=== PATIENT | female | born 1935 | race Caucasian/White ===

== ENCOUNTER 2017-11-18 11:19 | Observation (INO) ==
--- NOTE | 2017-11-18 11:32 | Emergency Department Note ---
Disposition Clinical Impression: Vertigo, Dizziness Fall with no significant injury Qualifiers: Encounter type: initial encounter Qualified Code(s): W19.XXXA - Unspecified fall, initial encounter Disposition: Admitted As Inpatient Condition: Good Referrals: Manny Ortiz DO [Family Provider] - NONE,PCP [Primary Care Provider] - Forms: ED Satisfaction Letter Time of Disposition: 18:40 Fall HPI - General Chief Complaint: ED Head Injury Stated Complaint: fell/head injury,neuro symptoms Time Seen by Provider: 11/18/17 11:22 Source: patient Mode of arrival: private vehicle Limitations: no limitations Nursing Notes Reviewed: Yes Vital Signs Reviewed: Yes - History of Present Illness HPI Narrative: 82-year-old female with history of hypertension, arrives to the emergency department complaining of fall injury. The patient states she got out of bed and was standing in front of the toilet and had a fall where she struck her head on the bench that she has in her bathroom. The patient states she had a dizzy spell prior to this episode. No LOC. No chest pain, no dyspnea. The patient denies any other complaints at this time. She called her daughter after it happened roughly an hour later and her daughter came to her house to evaluate the patient it was noted that time that the daughter noted a small amount of facial droop that she was a positive was actually there but wanted the patient to be checked out irregardless. The patient is neurologically intact at this time and following all commands and alert. The patient lives by herself. She denies any other complaints at this time. She does have a small hematoma overlying her left temporal region. Physical exam is otherwise unremarkable. She denies any paresthesias, confusion, chest pain, dyspnea, abdominal pain, fever, chills. - Related Data Home Medications Medication Instructions Recorded Confirmed Acetaminophen w/Cod 300-30 mg 1 - 2 tab PO Q6-8H PRN 11/18/17 11/18/17 [Tylenol w/Codeine #3] Aspirin [Lo-Dose Aspirin EC] 81 mg PO DAILY 11/18/17 11/18/17 Betamethasone Meghna 0.1% Crm 1 appl TP AD 11/18/17 11/18/17 [Valisone 0.1%] Bimatoprost [Lumigan] 1 drop BOTH EYES HS 11/18/17 11/18/17 Brinzolamide 1% [Azopt] 1 drop BOTH EYES BID 11/18/17 11/18/17 Hydrochlorothiazide [Microzide] 12.5 mg PO Q48H 11/18/17 11/18/17 Levothyroxine Sodium [Levoxyl] 50 mcg PO Q48H 11/18/17 11/18/17 Losartan [Cozaar] 25 mg PO DAILY 11/18/17 11/18/17 Metoprolol Succinate [Toprol Xl] 12.5 mg PO DAILY 11/18/17 11/18/17 Naproxen Sodium [Aleve] 220 mg PO Q12H PRN 11/18/17 11/18/17 Rosuvastatin [Crestor] 20 mg PO HS 11/18/17 11/18/17 Sertraline [Zoloft] 100 mg PO DAILY 11/18/17 11/18/17 Vit A/C/E AC/Znox/Cupric Oxide 1 tab PO DAILY 11/18/17 11/18/17 [Eye Vitamin-Minerals Tablet] hydrOXYzine pamoate [HydrOXYzine 25 - 50 mg PO HS PRN 11/18/17 11/18/17 Pamoate] Allergies Allergy/AdvReac Type Severity Reaction Status Date / Time No Known Allergies Allergy Verified 11/18/17 12:37 All systems ED: reviewed and negative except as stated. Constitutional: Denies: fever, chills, weakness Eyes: Denies: eye pain, eye discharge, vision change ENT ED: Denies: ear pain, dental pain, congestion Cardiovascular: Denies: chest pain Respiratory: Denies: dyspnea Gastrointestinal: Denies: abdominal pain Genitourinary: Denies: urgency, dysuria Musculoskeletal: Denies: back pain, neck pain, arthralgia, myalgia Integumentary: Denies: rash Neurological: Reports: headache. Denies: weakness, numbness, paresthesias, confusion, abnormal gait, vertigo Fall PMH - Past Medical History Medical history: Reports: hypertension Surgical history: Reports: non-contributory [employer] REPA[employer]ER history: Reports: non-contributory - Social History Smoking Status: Never smoker Alcohol use: Reports: none Drug use: Reports: none Physical Exam - General Limitations: no limitations General appearance: alert, in no apparent distress - Head Head exam: other (Patient has a small hematoma overlying the left temporal region. No other obvious signs of trauma. No lacerations.) - Eye Eye exam: Present: normal appearance, PERRL, EOMI - ENT ENT exam: normal exam, normal oropharynx, mucous membranes moist - Neck Neck exam: Present: normal inspection, full ROM, trachea midline - Chest Chest inspection: Present: normal inspection, symmetric chest wall rise - Respiratory Respiratory exam: Present: normal lung sounds bilaterally - Cardiovascular Cardiovascular exam: Present: regular rate, normal rhythm, normal heart sounds - Abdominal Exam Abdominal exam: Present: soft, Non-Tender. Absent: tenderness, distention, guarding, rebound, rigidity - Extremities Exam Extremities exam: Present: normal inspection, full ROM, other (Patient has a small abrasion to her left elbow and left shoulder. No obvious extravasation or bleeding noted at this time.). Absent: tenderness, pedal edema - Back Exam Back exam: Present: normal inspection, full ROM. Absent: tenderness - Neurological Exam Neurological exam: Present: alert, oriented X3, CN II-XII intact - Expanded Neurological Exam Patient oriented to: Present: person, place, time Speech: Present: fluid speech Cranial nerves: EOM function (II, III, IV, ): Normal, facial sensation (V): Normal, facial palsy (VII): Normal Motor strength - LUE: 5/5 Motor strength - RUE: 5/5 Motor strength - LLE: 5/5 Motor strength - RLE: 5/5 Sensory exam upper extremity: light touch: Normal Sensory exam lower extremity: light touch: Normal Coma Scale Eye Opening: Spontaneous Coma Scale Motor Response: Obeys Commands Coma Scale Verbal Response: Oriented Coma Scale Total: 15 - Skin Skin exam: Present: warm, dry, intact, normal color Course - Reevaluation(s) Reevaluation #1: After reevaluation with the patient experiencing a large amount of dizziness after going to the CT machine, performed a HINTS exam on her which demonstrated redirection of the patient's vision on examination as well as a positive finding on head impulse. This is concerning for a central cause of her dizziness. We will perform a MRI the patient's head and neck at this time. Time: 12:22 - Consultations Consultation #1: I spoke to [facility] neurology in Dr. Newby in which the case was discussed. he recommended to continue with the patient's MRI and then push the patient's images across so he can look at them. He requested call back when image is performed. Time: 13:08 Vital Signs Temperature 98.1 F 11/18/17 11:28 Pulse Rate 67 11/18/17 11:28 Respiratory Rate 18 11/18/17 11:28 Blood Pressure 190/86 11/18/17 11:28 O2 Sat by Pulse Oximetry 100 11/18/17 11:28 Temperature 98.1 F 11/18/17 11:28 Pulse Rate 67 11/18/17 16:12 Respiratory Rate 14 11/18/17 16:12 Blood Pressure 151/66 11/18/17 16:12 O2 Sat by Pulse Oximetry 98 11/18/17 16:12 Oxygen Delivery Oxygen Delivery Room Air Fall - MDM Narrative Medical decision making narrative: Workup in the emergency department demonstrates no acute process to account for the patient's symptoms. Given the patient's continual dizziness and concern for possible arrhythmia, we will admit the patient to the hospital at this time. MRI and MRA of the brain and neck demonstrated no acute process. The patient was made aware and agrees to plan of care. She is resting comfortably at this time. Accepted by Dr. Suarez. - Lab Data Lab results reviewed: Yes I reviewed the patient's lab results. Result diagrams: 11/18/17 11:29 11/18/17 11:29 Lab Results 11/18/17 11/18/17 11/18/17 Range/Units 11:25 11:29 11:29 WBC 9.6 (4.3-11.1) K/mcL RBC 4.69 (3.82-4.97) M/mcL Hgb 13.4 (11.5-15.4) g/dL Hct 40.4 (35.3-44.9) % MCV 86.1 (83.0-100.0) fL MCH 28.6 (28.0-33.3) pg MCHC 33.2 (31.6-35.5) g/dL RDW 13.1 (11.5-14.5) % Plt Count 209 (140-400) K/mcL MPV 10.2 (9.4-12.4) fL Immature Gran % 0.2 (0-4) % Seg Neutrophils % 76.8 % Lymphocytes % 16.7 % Monocytes % 5.1 % Eosinophils % 0.9 % Basophils % 0.3 % Neutrophils # 7.4 (1.6-8.9) K/mcL Lymphocytes # 1.6 (0.6-4.6) K/mcL Monocytes # 0.5 (0.0-1.3) K/mcL Eosinophils # 0.1 (0.0-0.6) K/mcL Basophils # 0.0 (0.0-0.2) K/mcL Sodium 139 (136-145) mEq/L Potassium 3.6 (3.5-5.1) mEq/L Chloride 107 (98-107) mEq/L Carbon Dioxide 25 (23-29) mEq/L BUN 14 (8-23) mg/dL Creatinine 0.60 (0.60-1.20) mg/dL Est GFR ( Amer) > 60 (> 60) Est GFR (Non-Af Amer) > 60 (> 60) BUN/Creatinine Ratio 23 (6-26) Glucose 111 H (70-105) mg/dL POC Glucose 98 (70-99) mg/dL Calculated Osmolality 289 (280-300) Calcium 9.4 (8.6-10.3) mg/dL Magnesium 2.0 (1.6-2.6) mg/dL Troponin I < 0.03 (< 0.04) ng/mL Urine Color (Yellow) Urine Clarity (Clear) Urine pH (5.0-8.0) pH Units Ur Specific [place] (1.010-1.025) Urine Protein (Neg-Trace) mg/dL Urine Glucose (UA) (Normal) mg/dL Urine Ketones (Negative) mg/dL Urine Blood (Negative) Urine Nitrite (Negative) Urine Bilirubin (Negative) Urine Urobilinogen (Normal) mg/dL Ur Leukocyte Esterase (Negative) Urine Microscopic RBC (0-3) per hpf Urine Microscopic WBC (0-3) per hpf Ur Squamous Epith Cells (None-Few) per lpf Urine Bacteria (None-Few) per hpf Hyaline Casts (None-Few) per lpf Ur Culture Indicated? (NO) 11/18/17 Range/Units 13:22 WBC (4.3-11.1) K/mcL RBC (3.82-4.97) M/mcL Hgb (11.5-15.4) g/dL Hct (35.3-44.9) % MCV (83.0-100.0) fL MCH (28.0-33.3) pg MCHC (31.6-35.5) g/dL RDW (11.5-14.5) % Plt Count (140-400) K/mcL MPV (9.4-12.4) fL Immature Gran % (0-4) % Seg Neutrophils % % Lymphocytes % % Monocytes % % Eosinophils % % Basophils % % Neutrophils # (1.6-8.9) K/mcL Lymphocytes # (0.6-4.6) K/mcL Monocytes # (0.0-1.3) K/mcL Eosinophils # (0.0-0.6) K/mcL Basophils # (0.0-0.2) K/mcL Sodium (136-145) mEq/L Potassium (3.5-5.1) mEq/L Chloride (98-107) mEq/L Carbon Dioxide (23-29) mEq/L BUN (8-23) mg/dL Creatinine (0.60-1.20) mg/dL Est GFR ( Amer) (> 60) Est GFR (Non-Af Amer) (> 60) BUN/Creatinine Ratio (6-26) Glucose (70-105) mg/dL POC Glucose (70-99) mg/dL Calculated Osmolality (280-300) Calcium (8.6-10.3) mg/dL Magnesium (1.6-2.6) mg/dL Troponin I (< 0.04) ng/mL Urine Color Yellow (Yellow) Urine Clarity Turbid A (Clear) Urine pH 7.5 (5.0-8.0) pH Units Ur Specific [place] 1.014 (1.010-1.025) Urine Protein Negative (Neg-Trace) mg/dL Urine Glucose (UA) Normal (Normal) mg/dL Urine Ketones Negative (Negative) mg/dL Urine Blood Small H (Negative) Urine Nitrite Negative (Negative) Urine Bilirubin Negative (Negative) Urine Urobilinogen Normal (Normal) mg/dL Ur Leukocyte Esterase Small H (Negative) Urine Microscopic RBC 3-5 H (0-3) per hpf Urine Microscopic WBC 0-3 (0-3) per hpf Ur Squamous Epith Cells Many H (None-Few) per lpf Urine Bacteria None Seen (None-Few) per hpf Hyaline Casts None Seen (None-Few) per lpf Ur Culture Indicated? NO. (NO) - Radiology Data Radiology results reviewed: Yes I reviewed the patient's radiology results. Cervical Spine CT 11/18/17 11:29 IMPRESSION: 1. Straightening of the normal lordosis of the cervical spine likely due to muscular spasm. D/ / Lamine Veloz MD / Lamine Veloz MD Interpreting Provider: Lamine Veloz MD Head CT 11/18/17 11:29 IMPRESSION: 1. No acute intracranial abnormality. D/ / Lamine Veloz MD / Lamine Veloz MD Interpreting Provider: Lamine Veloz MD Chest X-Ray 11/18/17 11:48 IMPRESSION: No acute airspace disease identified. Findings suggestive of emphysema. Mild cardiac silhouette enlargement. D/ / [place] / [place] Interpreting Provider: [place] Neck MRA 11/18/17 12:20 IMPRESSION: Normal MRA of the neck. D/ / [place] / [place] Interpreting Provider: [place] Head MRA 11/18/17 12:41 IMPRESSION: Normal MRA of the head. D/ / [place] / [place] Interpreting Provider: [place] Brain MRI 11/18/17 12:57 IMPRESSION: 1. No acute intracranial abnormality. 2. Mild chronic white matter microvascular ischemic changes. D/ / [place] / [place] Interpreting Provider: [place] - EKG Data EKG attestation: Yes I reviewed and interpreted this EKG. EKG results narrative: Heart rate 64 beats for minute. Normal sinus rhythm. No ST elevation or ST depression noted. There is similarity in morphology from EKG from 02/19/2000. Attestation Statement - Attestation Attestation: I, Shant Baron DO, examined this patient [id number] and my medical decision-making was reviewed with Roxana Tidwell DO, Resident Physician. I agree with the documented findings, disposition and treatment plan as described except to the extent set forth below. Please see my progress notes for details. NIH Stroke Scale - Level of Consciousness LOC: Alert - LOC Questions LOC Questions: Answers both correctly - LOC Commands LOC Commands: Performs both correctly - Best Gaze Best Gaze: Normal - Visual Visual: No visual loss - Facial Palsy Facial Palsy: Normal - Motor Arms Motor Arm-Left: No drift for 10 seconds Motor Arm-Right: No drift for 10 seconds - Motor Legs Motor Leg-Left: No drift for 5 seconds Motor Leg-Right: No drift for 5 seconds - Limb Ataxia Limb Ataxia: Normal, No Ataxia - Sensory Sensory: Normal - Best Language Best Language: No aphasia - Dysarthria Dysarthria: Normal - Extinction and Inattention Extinction and Inattention: Normal - NIHSS Total Score NIHSS Total Score: 0
[2017-11-18] MEDS ORDERED: Tdap (Boostrix) Vaccine 0.5 ML SYRINGE IM ONE (12:03)
--- NOTE | 2017-11-18 12:03 | Emergency Department Note ---
Disposition Clinical Impression: Vertigo, Dizziness Fall with no significant injury Qualifiers: Encounter type: initial encounter Qualified Code(s): W19.XXXA - Unspecified fall, initial encounter Disposition: Admitted As Inpatient Condition: Good Referrals: Manny Ortiz DO [Family Provider] - NONE,PCP [Primary Care Provider] - Forms: ED Satisfaction Letter Time of Disposition: 17:45 General Adult HPI - General Chief complaint: ED Head Injury Stated complaint: fell/head injury,neuro symptoms Time Seen by Provider: 11/18/17 11:22 Source: patient Mode of arrival: private vehicle Limitations: no limitations - History of Present Illness Pain Scale: 2 - Related Data Home Medications Medication Instructions Recorded Confirmed Acetaminophen w/Cod 300-30 mg 1 - 2 tab PO Q6-8H PRN 11/18/17 11/18/17 [Tylenol w/Codeine #3] Aspirin [Lo-Dose Aspirin EC] 81 mg PO DAILY 11/18/17 11/18/17 Betamethasone Meghna 0.1% Crm 1 appl TP AD 11/18/17 11/18/17 [Valisone 0.1%] Bimatoprost [Lumigan] 1 drop BOTH EYES HS 11/18/17 11/18/17 Brinzolamide 1% [Azopt] 1 drop BOTH EYES BID 11/18/17 11/18/17 Hydrochlorothiazide [Microzide] 12.5 mg PO Q48H 11/18/17 11/18/17 Levothyroxine Sodium [Levoxyl] 50 mcg PO Q48H 11/18/17 11/18/17 Losartan [Cozaar] 25 mg PO DAILY 11/18/17 11/18/17 Metoprolol Succinate [Toprol Xl] 12.5 mg PO DAILY 11/18/17 11/18/17 Naproxen Sodium [Aleve] 220 mg PO Q12H PRN 11/18/17 11/18/17 Rosuvastatin [Crestor] 20 mg PO HS 11/18/17 11/18/17 Sertraline [Zoloft] 100 mg PO DAILY 11/18/17 11/18/17 Vit A/C/E AC/Znox/Cupric Oxide 1 tab PO DAILY 11/18/17 11/18/17 [Eye Vitamin-Minerals Tablet] hydrOXYzine pamoate [HydrOXYzine 25 - 50 mg PO HS PRN 11/18/17 11/18/17 Pamoate] Allergies Allergy/AdvReac Type Severity Reaction Status Date / Time No Known Allergies Allergy Verified 11/18/17 12:37 Constitutional: Denies: fever, chills, weakness Eyes: Denies: eye pain, eye discharge, vision change ENT ED: Denies: ear pain, dental pain, congestion Cardiovascular: Denies: chest pain Respiratory: Denies: dyspnea Gastrointestinal: Denies: abdominal pain Genitourinary: Denies: urgency, dysuria Musculoskeletal: Denies: back pain, neck pain, arthralgia, myalgia Integumentary: Denies: rash Neurological: Reports: headache. Denies: weakness, numbness, paresthesias, confusion, abnormal gait, vertigo Past Medical History - Past Medical History Medical history: Reports: hypertension Surgical history: Reports: non-contributory Psychiatric history: Reports: no psych history W[employer] SELECTOR history: Reports: non-contributory - Social History Smoking Status: Never smoker Smokeless Tobacco Status: No Alcohol use: Reports: none Drug use: Reports: none Physical Exam - General Limitations: no limitations General appearance: alert, in no apparent distress Course Vital Signs Temperature 98.1 F 11/18/17 11:28 Pulse Rate 67 11/18/17 11:28 Respiratory Rate 18 11/18/17 11:28 Blood Pressure 190/86 11/18/17 11:28 O2 Sat by Pulse Oximetry 100 11/18/17 11:28 Temperature 98.1 F 11/18/17 11:28 Pulse Rate 67 11/18/17 16:12 Respiratory Rate 14 11/18/17 16:12 Blood Pressure 151/66 11/18/17 16:12 O2 Sat by Pulse Oximetry 98 11/18/17 16:12 Oxygen Delivery Oxygen Delivery Room Air Medical Decision Making - Lab Data Result diagrams: 11/18/17 11:29 11/18/17 11:29 Lab Results 11/18/17 11/18/17 11/18/17 Range/Units 11:25 11:29 11:29 WBC 9.6 (4.3-11.1) K/mcL RBC 4.69 (3.82-4.97) M/mcL Hgb 13.4 (11.5-15.4) g/dL Hct 40.4 (35.3-44.9) % MCV 86.1 (83.0-100.0) fL MCH 28.6 (28.0-33.3) pg MCHC 33.2 (31.6-35.5) g/dL RDW 13.1 (11.5-14.5) % Plt Count 209 (140-400) K/mcL MPV 10.2 (9.4-12.4) fL Immature Gran % 0.2 (0-4) % Seg Neutrophils % 76.8 % Lymphocytes % 16.7 % Monocytes % 5.1 % Eosinophils % 0.9 % Basophils % 0.3 % Neutrophils # 7.4 (1.6-8.9) K/mcL Lymphocytes # 1.6 (0.6-4.6) K/mcL Monocytes # 0.5 (0.0-1.3) K/mcL Eosinophils # 0.1 (0.0-0.6) K/mcL Basophils # 0.0 (0.0-0.2) K/mcL Sodium 139 (136-145) mEq/L Potassium 3.6 (3.5-5.1) mEq/L Chloride 107 (98-107) mEq/L Carbon Dioxide 25 (23-29) mEq/L BUN 14 (8-23) mg/dL Creatinine 0.60 (0.60-1.20) mg/dL Est GFR ( Amer) > 60 (> 60) Est GFR (Non-Af Amer) > 60 (> 60) BUN/Creatinine Ratio 23 (6-26) Glucose 111 H (70-105) mg/dL POC Glucose 98 (70-99) mg/dL Calculated Osmolality 289 (280-300) Calcium 9.4 (8.6-10.3) mg/dL Magnesium 2.0 (1.6-2.6) mg/dL Troponin I < 0.03 (< 0.04) ng/mL Urine Color (Yellow) Urine Clarity (Clear) Urine pH (5.0-8.0) pH Units Ur Specific [place] (1.010-1.025) Urine Protein (Neg-Trace) mg/dL Urine Glucose (UA) (Normal) mg/dL Urine Ketones (Negative) mg/dL Urine Blood (Negative) Urine Nitrite (Negative) Urine Bilirubin (Negative) Urine Urobilinogen (Normal) mg/dL Ur Leukocyte Esterase (Negative) Urine Microscopic RBC (0-3) per hpf Urine Microscopic WBC (0-3) per hpf Ur Squamous Epith Cells (None-Few) per lpf Urine Bacteria (None-Few) per hpf Hyaline Casts (None-Few) per lpf Ur Culture Indicated? (NO) 11/18/17 Range/Units 13:22 WBC (4.3-11.1) K/mcL RBC (3.82-4.97) M/mcL Hgb (11.5-15.4) g/dL Hct (35.3-44.9) % MCV (83.0-100.0) fL MCH (28.0-33.3) pg MCHC (31.6-35.5) g/dL RDW (11.5-14.5) % Plt Count (140-400) K/mcL MPV (9.4-12.4) fL Immature Gran % (0-4) % Seg Neutrophils % % Lymphocytes % % Monocytes % % Eosinophils % % Basophils % % Neutrophils # (1.6-8.9) K/mcL Lymphocytes # (0.6-4.6) K/mcL Monocytes # (0.0-1.3) K/mcL Eosinophils # (0.0-0.6) K/mcL Basophils # (0.0-0.2) K/mcL Sodium (136-145) mEq/L Potassium (3.5-5.1) mEq/L Chloride (98-107) mEq/L Carbon Dioxide (23-29) mEq/L BUN (8-23) mg/dL Creatinine (0.60-1.20) mg/dL Est GFR ( Amer) (> 60) Est GFR (Non-Af Amer) (> 60) BUN/Creatinine Ratio (6-26) Glucose (70-105) mg/dL POC Glucose (70-99) mg/dL Calculated Osmolality (280-300) Calcium (8.6-10.3) mg/dL Magnesium (1.6-2.6) mg/dL Troponin I (< 0.04) ng/mL Urine Color Yellow (Yellow) Urine Clarity Turbid A (Clear) Urine pH 7.5 (5.0-8.0) pH Units Ur Specific [place] 1.014 (1.010-1.025) Urine Protein Negative (Neg-Trace) mg/dL Urine Glucose (UA) Normal (Normal) mg/dL Urine Ketones Negative (Negative) mg/dL Urine Blood Small H (Negative) Urine Nitrite Negative (Negative) Urine Bilirubin Negative (Negative) Urine Urobilinogen Normal (Normal) mg/dL Ur Leukocyte Esterase Small H (Negative) Urine Microscopic RBC 3-5 H (0-3) per hpf Urine Microscopic WBC 0-3 (0-3) per hpf Ur Squamous Epith Cells Many H (None-Few) per lpf Urine Bacteria None Seen (None-Few) per hpf Hyaline Casts None Seen (None-Few) per lpf Ur Culture Indicated? NO. (NO) Critical Care Time Critical Care Time: Yes Total Critical Care Time: 45 Attestation: Critical care performed: Time is exclusive of separately billable procedures. Time includes: direct patient care, patient reassessment, coordination of patient care, interpretation of data (laboratory data, radiology data, and respiratory data), review of patient's medical records, medical consultation and documentation of patient care. Procedures included in critical care time: Procedures excluded from critical care time: Attestation Statement - Attestation Attestation: I, Shant Baron DO, examined this patient [id number] and my medical decision-making was reviewed with Roxana Tidwell DO, Resident Physician. I agree with the documented findings, disposition and treatment plan as described except to the extent set forth below. Please see my progress notes for details. 82-year-old female seen and evaluated this morning. Patient was getting up from bed quickly went to go to the bathroom. When she stopped turn to go to sit out on the toilet she felt very lightheaded and dizzy. She felt that time hitting the left side of her face and her left elbow. Left that is abrasion and there is abrasion the left shoulder. Patient denies any chest pain palpitations shortness of breath headache vision changes nausea vomiting or diarrhea prior to the events here today. She has been being worked up for cardiac arrhythmia over the last several weeks and had a Holter monitor in place. She was also started on several different medications. Patient has been following up closely with her primary care provider as well as a electrical appliance mechanic for these interventions and evaluation. The daughter manages her medications closely at home. Daughter brought into the emergency room today because she is concerned about some slight left-sided facial droop. Subjectively, it is difficult to differentiate facial droop on the patient's evaluation. She is appearing to be symmetrical. She has no difficulty with speech sensation or bulbar sensation on exam. She has no neurologic deficits or symptoms noted. Head appears to be atraumatic except for small bruise just above the left superior orbital ridge. Pressure ocular muscles are intact. Orbits appear to be stable. She has no tenderness over the nasal bridge. There is no septal hematoma noted. No tenderness over the angles of the jaw no dentition related issues. Oropharynx is patent trachea is midline lungs are clear heart is regular abdomen is soft. Cranial nerve III through XII are grossly intact. She moves all 4 extremities without any difficulty. She has no acute deficits or neurologic symptoms noted on exam. Because of the patient' s remote history of palpitations and arrhythmia evaluation will include CT imaging of the head CT imaging of the cervical spine chest x-ray EKG labs including magnesium troponin and urinalysis along with screening CBC and chemistry. Patient will most likely require admission for further evaluation of an unbeknownst near syncopal event with cardiac arrhythmia being a concern on initial presentation. See detailed documentation of the physical exam, medical intervention, medical decision-making and disposition in the resident physician's note. No critical care provider this patient's treatment course at this time. 1245 Patient had reemergence of the dizziness when she was transferred from the bed to the CT imaging table. Lengthy discussion was had with the patient and family that the initial onset was at 9 AM this morning when she had her first dizziness and syncope. Patient had reemergence of the symptoms after having a completely benign initial presentation. Last known well this point is approximately 45 minutes prior to being sent over to the imaging and workup. Discussion was had with the on-call neurologist at [facility] further recommendations considering the confounding timeframe as well as a concern for central cerebellar dysfunction possible stroke. MRIs of been ordered at this point. The physician Dr. abdi reviewed the case with the resident physician. Recommendations will be noted in the chart. 1345 Patient was unable Y flat for the MRI. Valium will be given at this time. Reconsultation for the neurologist at [facility] is completed. He agreed and felt that imaging would be the most pertinent part of this time did not want the patient transferred at this point. We will continue to monitor as a full treatment course and evaluation her status. Medications will be given at this time. 1725 MRI is negative for acute signs of vascular insufficiency stroke or cerebellar dysfunction. Patient will still require admission to the hospital at this time for near syncopal event and her history of cardiac arrhythmia. Symptomatic control be completed at this time. Patient is otherwise stable no visible signs of stroke and does not require further workup treatment course and evaluation patient will be admitted at this time..
[2017-11-18 12:10] LABS: Basophils % 0.3 %; Eosinophils # 0.1 K/mcL (0.0-0.6); Eosinophils % 0.9 %; Hematocrit 40.4 % (35.3-44.9); Hemoglobin 13.4 g/dL (11.5-15.4); Immature Granulocytes % 0.2 % (0-4); Lymphocytes # 1.6 K/mcL (0.6-4.6); Lymphocytes % 16.7 %; Mean Corpuscular HGB Conc 33.2 g/dL (31.6-35.5); Mean Corpuscular Hemoglobin 28.6 pg (28.0-33.3); Mean Corpuscular Volume 86.1 fL (83.0-100.0); Mean Platelet Volume 10.2 fL (9.4-12.4); Monocytes # 0.5 K/mcL (0.0-1.3); Monocytes % 5.1 %; Neutrophils # 7.4 K/mcL (1.6-8.9); Platelet Count 209 K/mcL (140-400); Red Blood Count 4.69 M/mcL (3.82-4.97); Red Cell Distribution Width 13.1 % (11.5-14.5); Segmented Neutrophils % 76.8 %
[2017-11-18 12:37] LABS: Troponin I < 0.03 ng/mL (< 0.04)
[2017-11-18 12:39] LABS: BUN/Creatinine Ratio 23 (6-26); Blood Urea Nitrogen 14 mg/dL (8-23); Calcium 9.4 mg/dL (8.6-10.3); Carbon Dioxide 25 mEq/L (23-29); Chloride 107 mEq/L (98-107); Glucose 111 mg/dL (70-105); Osmolality,Calculated 289 (280-300); Potassium 3.6 mEq/L (3.5-5.1); Sodium 139 mEq/L (136-145); eGFR For African Americans > 60 (> 60); eGFR For Non-African Americans > 60 (> 60)
[2017-11-18] MEDS ORDERED: Ondansetron 4 MG/2 ML VIAL IVP ONE (12:42)
[2017-11-18 13:33] LABS: Bilirubin,Urine Negative (Negative); Blood,Urine Small (Negative); Clarity,Urine Turbid (Clear); Color,Urine Yellow (Yellow); Glucose,Urine (UA) Normal (Normal); Ketones,Urine Negative (Negative); Leukocyte Esterase,Urine Small (Negative); Nitrite,Urine Negative (Negative); PH,Urine 7.5 pH Units (5.0-8.0); Protein,Urine Negative (Neg-Trace); Specific Gravity,Urine 1.014 (1.010-1.025); Urobilinogen,Urine Normal (Normal)
[2017-11-18] MEDS ORDERED: diazePAM 2 MG TABLET PO STA (13:36)
[2017-11-18 13:37] LABS: Bacteria,Urine None Seen per hpf (None-Few); Hyaline Casts,Urine None Seen per lpf (None-Few); Squamous Epithelial Cell,Urine Many per lpf (None-Few); WBC,Urine 0-3 per hpf (0-3)
[2017-11-18] MEDS ORDERED: diazePAM 10 MG/2 ML SYRINGE IVP STA (15:58)
[2017-11-18] MEDS ORDERED: *HR* LORazepam 2 MG/ML VIAL IVP ONE (16:06)
--- NOTE | 2017-11-18 19:45 | Internal Med History&Physical ---
Date of Encounter: 11/19/17 Time of Encounter: 19:42 Internal Medicine - H&P: HPI Chief complaint: Dizziness Admitted From: Emergency Dept Plans for Post Hospital Care: Home History of present illness: Ms. Vieyra is a 82 year old female with history of hypertension, hypothyroidism who presents to the emergency department complaining of a dizzy spell at home. The patient has been dealing with some palpitations for the last few weeks and ended up seeing her primary care physician who set her up with a event monitor which she turned in yesterday. Does not know the results of that. This morning she got up and went to the bathroom and was at the toilet although her daughter states that she was not really having a bowel movement or was voiding yet at the time of the fall. The patient remembers that she felt dizzy and fell to her left side and hit her head. Because of that she came to the emergency department. The daughter also at home who is a nurse noted that she had a left-sided facial droop. Because of that [facility] was contacted and recommended a stroke workup which came back negative including CT head, MRA head and neck, MRI brain. The patient had symptoms while she was in the emergency department while being transferred from [facility] and was given Valium and meclizine which helped her symptoms. EKG with no new ST or T-wave changes. The patient denies any fever, chills, nausea, vomiting, chest pain, shortness breath, abdominal pain, urinary symptoms. She denies numbness or tingling. Past Med Surg Social Fam HX - Past Medical History Medical history: hypertension Psychiatric history: no psych history - Past Surgical History Surgical History: non-contributory - Social History Smoking Status: Never smoker Smokeless Tobacco Status: No Alcohol use: none Drug use: none Internal Medicine - H&P: Meds Acetaminophen w/Cod 300-30 mg [Tylenol w/Codeine #3] 1 - 2 tab PO Q6-8H PRN 12/02 [History] Aspirin [Lo-Dose Aspirin EC] 81 mg PO DAILY 11/18/17 [History] Betamethasone Meghna 0.1% Crm [Valisone 0.1%] 1 appl TP AD 11/18/17 [History] Bimatoprost [Lumigan] 1 drop BOTH EYES HS 11/18/17 [History] Brinzolamide 1% [Azopt] 1 drop BOTH EYES BID 11/18/17 [History] Hydrochlorothiazide [Microzide] 12.5 mg PO Q48H 11/18/17 [History] Levothyroxine Sodium [Levoxyl] 50 mcg PO Q48H 11/18/17 [History] Losartan [Cozaar] 25 mg PO DAILY 11/18/17 [History] Metoprolol Succinate [Toprol Xl] 12.5 mg PO DAILY 11/18/17 [History] Naproxen Sodium [Aleve] 220 mg PO Q12H PRN 11/18/17 [History] Rosuvastatin [Crestor] 20 mg PO HS 11/18/17 [History] Sertraline [Zoloft] 100 mg PO DAILY 11/18/17 [History] Vit A/C/E AC/Znox/Cupric Oxide [Eye Vitamin-Minerals Tablet] 1 tab PO DAILY 12/02 [History] hydrOXYzine pamoate [HydrOXYzine Pamoate] 25 - 50 mg PO HS PRN 11/18/17 [History ] 3 Allergy/AdvReac Type Severity Reaction Status Date / Time No Known Allergies Allergy Verified 11/18/17 12:37 All Systems PM: A 10-system review of systems was performed and is negative for pertinent findings except as documented above in the HPI. Review of systems: All systems reviewed are negative except for as mentioned above - Constitutional Vitals: Temp Pulse Resp BP Pulse Ox 98.1 F 67 14 151/66 98 11/18/17 11:28 11/18/17 16:12 11/18/17 16:12 11/18/17 16:12 11/18/17 16:12 Exam: GEN: NAD HEENT: AT, NC, No cyanosis, oral mucosa is moist, No JVD Lymphatics: No lymphadenoapthy Eyes: Extrocular muscles intact, anicteric CVS:RRR. S1, S2, No m/r/g RESP: CTAB ABD: Soft, NT, ND, +BS EXT: No edema, No rashes, 2+ DP NEURO: Nonfocal, CN II-XII intact, No focal motor or sensory deficits Psych: Cooperative, Not anxious or depressed Internal Med - H&P Results - Labs CBC & Chem 7: 11/18/17 11:29 11/18/17 11:29 Labs: Short CBC 11/18/17 Range/Units 11:29 WBC 9.6 (4.3-11.1) K/mcL Hgb 13.4 (11.5-15.4) g/dL Hct 40.4 (35.3-44.9) % Plt Count 209 (140-400) K/mcL Neutrophils # 7.4 (1.6-8.9) K/mcL BMP 11/18/17 11:29 Sodium 139 Potassium 3.6 Chloride 107 Carbon Dioxide 25 BUN 14 Creatinine 0.60 Glucose 111 H Calcium 9.4 Cardiac Enzymes 11/18/17 Range/Units 11:29 Troponin I < 0.03 (< 0.04) ng/mL Urine 11/18/17 Range/Units 13:22 Urine Color Yellow (Yellow) Urine Clarity Turbid A (Clear) Urine pH 7.5 (5.0-8.0) pH Units Ur Specific [place] 1.014 (1.010-1.025) Urine Protein Negative (Neg-Trace) mg/dL Urine Glucose (UA) Normal (Normal) mg/dL - Impressions ITS Impressions Cervical Spine CT 11/18/17 11:29 IMPRESSION: 1. Straightening of the normal lordosis of the cervical spine likely due to muscular spasm. D/ / Lamine Veloz MD / Lamine Veloz MD Interpreting Provider: Lamine Veloz MD Head CT 11/18/17 11:29 IMPRESSION: 1. No acute intracranial abnormality. D/ / Lamine Veloz MD / Lamine Veloz MD Interpreting Provider: Lamine Veloz MD Chest X-Ray 11/18/17 11:48 IMPRESSION: No acute airspace disease identified. Findings suggestive of emphysema. Mild cardiac silhouette enlargement. D/ / [place] / [place] Interpreting Provider: [place] Neck MRA 11/18/17 12:20 IMPRESSION: Normal MRA of the neck. D/ / [place] / [place] Interpreting Provider: [place] Head MRA 11/18/17 12:41 IMPRESSION: Normal MRA of the head. D/ / [place] / [place] Interpreting Provider: [place] Brain MRI 11/18/17 12:57 IMPRESSION: 1. No acute intracranial abnormality. 2. Mild chronic white matter microvascular ischemic changes. D/ / [place] / [place] Interpreting Provider: [place] - Assessment and plan (1) Dizziness Current Visit: Yes Status: Acute Assessment and plan: Etiology is unclear for now. Possibly vasovagal versus arrhythmia vs. vertigo versus TIA. We will admit the patient and get an echocardiogram and rule out any structural abnormalities. Check orthostatics. Check TSH. Keep on tele. Patient had recurrence of her symptoms while in the ED and received meclizine which she says helped somewhat. Workup including CT head, MRA head and neck, MRI brain were unrevealing. Continue aspirin and statin. (2) Hypertension Current Visit: Yes Status: Acute Assessment and plan: Resume home antihypertensives Qualifiers: Hypertension type: essential hypertension Qualified Code(s): I10 - Essential (primary) hypertension (3) DVT prophylaxis Current Visit: Yes Status: Acute Assessment and plan: Heparin subcutaneous - Time Spent With Patient Total time spent is greater than 50% in coordination of care (as documented) at patient's floor/unit and/or counseling patient:
[2017-11-18] MEDS ORDERED: Naloxone 0.4 MG/ML INJ IVP PRN (19:47)
[2017-11-18] MEDS ORDERED: Acetaminophen 325 MG TABLET PO PRN (19:47)
[2017-11-18] MEDS ORDERED: hydroCHLOROthiazide 25 MG TABLET PO SCH (20:00)
[2017-11-18] MEDS: *HR* Heparin 5,000 UNIT/ML VIAL SQ SCH (21:38)
[2017-11-18] MEDS: Brinzolamide 1% 10 ML BOTTLE BOTH EYES SCH (21:44)
[2017-11-18] MEDS: Latanoprost 2.5 ML BOTTLE BOTH EYES SCH (21:45)
--- NOTE | 2017-11-19 01:53 | Event Note ---
Date of Encounter: 11/19/17 Time of Encounter: 01:51 My colleague, Dr. Putnam about patient going into afib with RVR. Cardizem 10 mg IV push was ordered. Will possibly need a cardizem drip. TSH pending. TTE ordered on admission. May need a consult to cardiology.
[2017-11-19 05:33] LABS: Basophils % 0.4 %; Eosinophils # 0.1 K/mcL (0.0-0.6); Eosinophils % 1.9 %; Hematocrit 40.4 % (35.3-44.9); Hemoglobin 13.3 g/dL (11.5-15.4); Immature Granulocytes % 0.3 % (0-4); Lymphocytes % 28.2 %; Mean Corpuscular HGB Conc 32.9 g/dL (31.6-35.5); Mean Corpuscular Hemoglobin 28.4 pg (28.0-33.3); Mean Corpuscular Volume 86.3 fL (83.0-100.0); Mean Platelet Volume 10.3 fL (9.4-12.4); Monocytes # 0.5 K/mcL (0.0-1.3); Monocytes % 6.8 %; Neutrophils # 4.4 K/mcL (1.6-8.9); Nucleated Red Blood Cells 0.3 /100 WBC (0); Platelet Count 212 K/mcL (140-400); Red Blood Count 4.68 M/mcL (3.82-4.97); Red Cell Distribution Width 13.2 % (11.5-14.5); Segmented Neutrophils % 62.4 %
[2017-11-19 05:54] LABS: BUN/Creatinine Ratio 21 (6-26); Blood Urea Nitrogen 12 mg/dL (8-23); Calcium 9.2 mg/dL (8.6-10.3); Carbon Dioxide 25 mEq/L (23-29); Chloride 110 mEq/L (98-107); Chol/HDL Ratio 2.5 (0-4.9); Cholesterol 134 mg/dL (< 200); Glucose 95 mg/dL (70-105); HDL Cholesterol 54 mg/dL (40-59); LDL Cholesterol,Calculated 56 mg/dL (0-99); Magnesium 2.1 mg/dL (1.6-2.6); Osmolality,Calculated 288 (280-300); Potassium 3.5 mEq/L (3.5-5.1); Sodium 139 mEq/L (136-145); Triglycerides 119 mg/dL (< 150); eGFR For African Americans > 60 (> 60); eGFR For Non-African Americans > 60 (> 60)
[2017-11-19 06:05] LABS: Thyroid Stimulating Hormone 1.638 mcIU/mL (0.340-5.600)
[2017-11-19] MEDS: *HR* Heparin 5,000 UNIT/ML VIAL SQ SCH ×3 (06:08→22:08)
[2017-11-19] MEDS: Aspirin Enteric Coated 81 MG Tablet PO SCH (07:29)
[2017-11-19] MEDS: Brinzolamide 1% 10 ML BOTTLE BOTH EYES SCH ×2 (07:29→22:08)
[2017-11-19] MEDS: Multivit/Ca/Min/Fe/FA 1 TAB TABLET PO SCH (07:32)
[2017-11-19 08:43] LABS: Estimated Average Glucose 120 mg/dl; Hemoglobin A1C 5.8 %
[2017-11-19] MEDS ORDERED: Metoprolol XL (24 HR) Succ 25 MG TAB.ER.24H PO SCH (09:00)
--- NOTE | 2017-11-19 14:18 | Internal Med Progress Note ---
Date of Encounter: 11/19/17 Time of Encounter: 11:30 - Assessment and plan (1) Paroxysmal atrial fibrillation with RVR Current Visit: Yes Status: Acute Assessment and plan: This is a new development as of last night/early this morning. This might correlate with the patient's history that she is been having palpitations off and on and for which she had a full 30 day Holter monitor. The results of this Holter study are pending and we will request the family members to bring the results to us. He most likely has paroxysmal atrial fibrillation as evidenced by the events this morning. I will consult cardiology and start her on anticoagulation with Coumadin. Pharmacy has been consulted to help with the same.. Her CHADSVASC2 score is 3 at least and she will benefit from anticoagulation. Her ATRIA score is also low for major bleeding events At the time of my examination her heart rate was in the high 90s. I will increase her beta blockers to 25 mg XL (2) Dizziness Current Visit: Yes Status: Acute Assessment and plan: Etiology is unclear for now. Possibly vasovagal versus arrhythmia vs. vertigo versus TIA. We will admit the patient and get an echocardiogram and rule out any structural abnormalities. Check orthostatics. Check TSH. Keep on tele. Patient had recurrence of her symptoms while in the ED and received meclizine which she says helped somewhat. Workup including CT head, MRA head and neck, MRI brain were unrevealing. Continue aspirin and statin. 11/19/2017-this seems to be multifactorial. Concern for vertigo versus TIA. Her MRI of the head and neck is negative. Echo has been done but result is pending. Orthostatics are also pending at this point. I have consulted cardiology given the recent most events. Patient most likely has paroxysmal atrial fibrillation for which Reglan as mentioned below. (3) Hypertension Current Visit: Yes Status: Acute Assessment and plan: Resume home antihypertensives Qualifiers: Hypertension type: essential hypertension Qualified Code(s): I10 - Essential (primary) hypertension (4) DVT prophylaxis Current Visit: Yes Status: Acute Assessment and plan: Heparin subcutaneous Will initiate anticoagulation for atrial fibrillation - Time Spent With Patient Total time spent is greater than 50% in coordination of care (as documented) at patient's floor/unit and/or counseling patient: Greater than 35 minutes - Subjective Interval history: Patient continues to feel dizzy off and on. 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 She does have a history of long-standing obstructive sleep apnea for which he does not wear a CPAP. The family told me that she is supposed to have a repeat of her home nocturnal sleep study just upon out of getting out from the hospital. She denies any chest pain but does feel malaise overall. - Constitutional Vitals: Temp Pulse Resp BP Pulse Ox 98.2 F 93 15 105/73 94 11/19/17 10:26 11/19/17 10:26 11/19/17 10:26 11/19/17 10:11/19/17 10:26 Exam: GENERAL: Alert, in moderate distress, cooperative EYES: PERRLA, EOMI EARS: External ears normal, canals clear OROPHARYNX: Lips, mucosa, and tongue normal. Teeth and gums normal. Oropharynx normal. NECK: No jugulovenous distention, No carotid bruits, Carotid pulse normal contour, Supple LUNGS: Lungs clear to auscultation, Good diaphragmatic excursion CARDIAC: S1 and S2, irregular, no murmurs, rubs or gallops appreciated. ABDOMEN: Abdomen soft, non-tender, BS normal, No masses or organomegaly EXTREMITIES: Extremities normal, no deformities, edema, clubbing or skin discoloration. Good capillary refill., No ulcers NEURO: Gait normal. Reflexes normal and symmetric. Sensation grossly intact, Cranial nerves II-XII intact PULSES: 2+ radial, 2+ carotid Rest of the exam is non contributory Internal Medicine: Result - Labs CBC & Chem 7: 11/19/17 05:14 11/19/17 05:14 Labs: Short CBC 11/19/17 Range/Units 05:14 WBC 7.0 (4.3-11.1) K/mcL Hgb 13.3 (11.5-15.4) g/dL Hct 40.4 (35.3-44.9) % Plt Count 212 (140-400) K/mcL Neutrophils # 4.4 (1.6-8.9) K/mcL BMP 11/19/17 05:14 Sodium 139 Potassium 3.5 Chloride 110 H Carbon Dioxide 25 BUN 12 Creatinine 0.56 L Glucose 95 Calcium 9.2 - Impressions Impressions Echocardiogram 11/19/17 19:45 Impressions: Atrial fibrillation with RVR during study. Grossly normal LV systolic function. Indeterminate diastolic function. Normal right ventricular structure and function. Severely dilated left atrium. Moderate mitral regurgitation. Mild tricuspid regurgitation. No pulmonary hypertension. Recommend repeat Limited study for evaluation of LVEF and mitral regurgitation when heart rates are controlled. Left Ventricular Wall Motion: Rest Echo Findings All wall segments showed normal motion. Findings: Study Quality * Technically adequate exam. ECG Findings * Atrial fibrillation with RVR during study. Left Ventricle * Grossly normal LV systolic function. * Normal LV chamber size, wall thickness and function. * Indeterminate diastolic function. Right Ventricle * Normal right ventricular structure and function. Left Atrium * Severely dilated left atrium. Right Atrium * Normal right atrial size. Mitral Valve * Normal mitral valve structure. * No mitral stenosis. * Moderate mitral regurgitation. Aortic Valve * No aortic regurgitation. * Trileaflet aortic valve. * No aortic stenosis. Tricuspid Valve * Normal tricuspid valve structure. * Mild tricuspid regurgitation. * Estimated RA pressure is 3 mmHg. * Estimated RVSP is 30 mmHg. * No pulmonary hypertension. Pulmonic Valve * Pulmonic valve is not well visualized. * No pulmonic stenosis. * No pulmonic regurgitation. Pulmonary Artery * Pulmonary artery not well visualized. Aorta * Normally sized aortic root. * Proximal ascending aorta not well visualized. Pericardium * There is no pericardial effusion present. Interatrial Septum * No evidence of PFO by color Doppler. IVC * Normal IVC dimensions and inspiratory collapse. Consult Discharge Plan - Plan Referrals: NONE,PCP [Primary Care Provider] - Manny Ortiz DO [Family Provider] -
[2017-11-19 15:10] LABS: INR 1.1; Prothrombin Time 12.2 Seconds (9.4-12.1)
--- NOTE | 2017-11-19 16:45 | Cardiology Consult Note ---
Date of Encounter: 11/19/17 Time of Encounter: 16:42 Assessment and Plan (1) Paroxysmal atrial fibrillation with RVR Current Visit: Yes Status: Acute Preserved ejection fraction with paroxysmal atrial fibrillation. Continue titration of beta solange for rate control. Anticoagulations for stroke risk reduction. Risks benefits alternatives discussed patient and she agrees to proceed. Outpatient stress test is reasonable to rule out ischemia as a culprit. Follow-up with cardiology in 4-6 weeks Discussion w patient/family: The assessment and plan as outlined above was discussed with the patient and/or family members who expressed understanding and agreement. All questions were answered. Thank you for involving us in the care of your patient. Please call with any questions. History of Present Illness Consult date: 11/19/17 Consult reason: Afib Chief complaint: Dizziness History of present illness: Ms. Vieyra is a 82 year old female with history of untreated sleep apnea, found to have atrial fibrillation on presentation with dizziness and lightheadedness. Currently is rate controlled 8200 bpm. High risk of stroke therefore anticoagulation is recommended. We discussed the risks benefits and alternatives and she has agreed to proceed with anticoagulation for stroke risk reduction. She denies any chest pain, dyspnea on exertion, orthopnea, PND, presyncope or syncope We discussed the possibility of ischemic workup due to her atrial fibrillation she has agreed to proceed with this either inpatient or outpatient. She will need to follow-up with cardiology as an outpatient for further recommendations. Rate control at this time due to a preserved ejection fraction on her echocardiogram is reasonable. Would consider COLIN/cardioversion if patient is symptomatic. Likely patient has had atrial fib for a while due to the structural heart changes evident on her echocardiogram. Past Med Surg Social Fam HX - Past Medical History Medical history: hypertension Psychiatric history: no psych history - Past Surgical History Surgical History: non-contributory - Social History Smoking Status: Never smoker Smokeless Tobacco Status: No Alcohol use: none Drug use: none Medications and Allergies Acetaminophen w/Cod 300-30 mg [Tylenol w/Codeine #3] 1 - 2 tab PO Q6-8H PRN 12/02 [History] Aspirin [Lo-Dose Aspirin EC] 81 mg PO DAILY 11/18/17 [History] Betamethasone Meghna 0.1% Crm [Valisone 0.1%] 1 appl TP AD 11/18/17 [History] Bimatoprost [Lumigan] 1 drop BOTH EYES HS 11/18/17 [History] Brinzolamide 1% [Azopt] 1 drop BOTH EYES BID 11/18/17 [History] Hydrochlorothiazide [Microzide] 12.5 mg PO Q48H 11/18/17 [History] Levothyroxine Sodium [Levoxyl] 50 mcg PO Q48H 11/18/17 [History] Losartan [Cozaar] 25 mg PO DAILY 11/18/17 [History] Metoprolol Succinate [Toprol Xl] 12.5 mg PO DAILY 11/18/17 [History] Naproxen Sodium [Aleve] 220 mg PO Q12H PRN 11/18/17 [History] Rosuvastatin [Crestor] 20 mg PO HS 11/18/17 [History] Sertraline [Zoloft] 100 mg PO DAILY 11/18/17 [History] Vit A/C/E AC/Znox/Cupric Oxide [Eye Vitamin-Minerals Tablet] 1 tab PO DAILY 12/02 [History] hydrOXYzine pamoate [HydrOXYzine Pamoate] 25 - 50 mg PO HS PRN 11/18/17 [History ] 3 Allergy/AdvReac Type Severity Reaction Status Date / Time No Known Allergies Allergy Verified 11/18/17 12:37 All Systems Review: The remainder of the systems were reviewed and are negative Physical Examination Vital Signs, Last 4 Hours Temp Pulse Resp BP Pulse Ox 11/19/17 14:52 98.2 F 89 15 114/72 94 General: Conversant, No Apparent Distress HEENT: Atraumatic, Normocephaly, Mucus Membranes Moist Neck: No JVD, Normal carotid pulses Cardiac: Reg Rate and Rhythm, Normal S1 and S2, No Murmur Lungs: Normal Breath Sounds, No Wheeze, Rales, Rhonchi Neuro: Alert and responsive, No focal deficits noted Abdomen: Soft, Non-Tender Skin: No rashes noted on visualized skin Musculoskeletal: No Chest Wall Tenderness Extremities: No Clubbing, No Cyanosis, No Edema, Normal Pulses Results 11/19/17 05:14 11/19/17 05:14 Lab Results 11/19/17 11/19/17 11/19/17 05:14 05:14 12:09 WBC 7.0 Hgb 13.3 Hct 40.4 Plt Count 212 INR 1.1 Sodium 139 Potassium 3.5 Chloride 110 H Carbon Dioxide 25 BUN 12 Creatinine 0.56 L Glucose 95 Calcium 9.2 Magnesium 2.1 TSH 1.638 Consult Discharge Plan - Plan Referrals: Manny Ortiz DO [Family Provider] - NONE,PCP [Primary Care Provider] -
[2017-11-19] MEDS ORDERED: *HR* Warfarin 2.5 MG TABLET PO ONE (18:00)
[2017-11-19] MEDS ORDERED: Warfarin perPT PO PRN (18:00)
[2017-11-19] MEDS: Latanoprost 2.5 ML BOTTLE BOTH EYES SCH (22:09)
[2017-11-20] MEDS: *HR* Heparin 5,000 UNIT/ML VIAL SQ SCH (05:13)
[2017-11-20 05:53] LABS: INR 1.1; Prothrombin Time 12.3 Seconds (9.4-12.1)
[2017-11-20] MEDS: Brinzolamide 1% 10 ML BOTTLE BOTH EYES SCH (07:28)
[2017-11-20] MEDS: Aspirin Enteric Coated 81 MG Tablet PO SCH (07:29)
[2017-11-20] MEDS: Multivit/Ca/Min/Fe/FA 1 TAB TABLET PO SCH (07:30)
[2017-11-20 07:37] VITALS: BP 141/83
[2017-11-20] MEDS ORDERED: Metoprolol XL (24 HR) Succ 25 MG TAB.ER.24H PO SCH (09:00)
--- NOTE | 2017-11-20 09:38 | Discharge Summary ---
- NOTES TO OUTPATIENT PROVIDER Notes to Outpatient Provider: Patient is a new onset of atrial fibrillation with rapid ventricular response and congestive ejection fraction. She has been started on Eliquis and will need to be followed up closely with cardiology as well as primary care physician Orders not resulted at time of discharge: Pending orders 11/21/17 04:00 INR/PT [Prothrombin Time INR] [COAG] AM 0400 11/22/17 04:00 INR/PT [Prothrombin Time INR] [COAG] AM 0400 Date of Encounter: 11/20/17 Time of Encounter: 09:34 - Discharge Diagnosis (1) Paroxysmal atrial fibrillation with RVR Priority: Primary Status: Acute (2) Dizziness Priority: Secondary Status: Acute (3) Hypertension Priority: Secondary Status: Acute Qualifiers: Hypertension type: essential hypertension Qualified Code(s): I10 - Essential (primary) hypertension (4) DVT prophylaxis Priority: Secondary Status: Acute Hospital course: Ms. Vieyra is a 82 year old female with a past medical history hypertension, hypothyroidism who presented to the emergency department condition complain of dizziness and a fall. The patient had been having some palpitations in the last few weeks leading up to the emergency room visit and in fact had a Holter monitor in place the results of which are not available while in house. She underwent a TIA workup which was negative. CT head, MRA of the head and neck as well as MRI brain were all nonsuggestive of a new infarct. While she was placed on telemetry monitoring in the hospital the patient had paroxysmal atrial fibrillation with rapid ventricular response which responded very nicely to increased dose of beta blockers. In hindsight, this is most likely the underlying etiology of her palpitations and intermittent dizziness. She has been seen by cardiology and checked an echo which showed preserved ejection fraction. So this likely becomes the case of new onset atrial fibrillation with preserved ejection fraction. Interestingly, the patient also has a long- standing history of sleep apnea for which she really has never been on any treatment. She is supposed to undergo a home sleep study in the near future. This will have to be closely followed up by her primary care physician. We Have started her on Eliquis given the fact that she does not want to get frequent blood draws while on Coumadin. Her rate control is good with increased dose of metoprolol. I will also taken her hydrochlorothiazide as well as hydroxyzine off for fear of dizziness. I have also gone over the risk factors for blood thinners including signs of occult bleeding and when to seek medical help and the family seems to understand that well. - Time Spent with Patient Total time spent providing and/or coordinating discharge services: - Discharge Medications Prescriptions: Apixaban [Eliquis] 5 mg PO BID #60 tablet Meclizine [Antivert] 12.5 mg PO TID #20 tablet Metoprolol XL (24 HR) Succ [Toprol Xl] 25 mg PO DAILY #30 tab.er.24h Home Medications: Aspirin [Lo-Dose Aspirin EC] 81 mg PO DAILY 11/18/17 [History] Bimatoprost [Lumigan] 1 drop BOTH EYES HS 11/18/17 [History] Brinzolamide 1% [Azopt] 1 drop BOTH EYES BID 11/18/17 [History] Levothyroxine Sodium [Levoxyl] 50 mcg PO Q48H 11/18/17 [History] Losartan [Cozaar] 25 mg PO DAILY 11/18/17 [History] Rosuvastatin [Crestor] 20 mg PO HS 11/18/17 [History] Sertraline [Zoloft] 100 mg PO DAILY 11/18/17 [History] Vit A/C/E AC/Znox/Cupric Oxide [Eye Vitamin-Minerals Tablet] 1 tab PO DAILY 12/02 [History] Acetaminophen [Tylenol] 650 mg PO Q6HR PRN tablet 11/20/17 [Rx] Apixaban [Eliquis] 5 mg PO BID #60 tablet 11/20/17 [Rx] Meclizine [Antivert] 12.5 mg PO TID #20 tablet 11/20/17 [Rx] Metoprolol XL (24 HR) Succ [Toprol Xl] 25 mg PO DAILY #30 tab.er.24h 11/20/17 [ Rx] Allergies/Adverse Reactions: 3 Allergy/AdvReac Type Severity Reaction Status Date / Time No Known Allergies Allergy Verified 11/18/17 12:37 Date of admission: 11/18/17 20:00 Primary care physician: PCP NONE Consults: 11/19/17 11:44 Consult to Cardiology [CONS] Routine Comment: Consulting Provider: Cardiology Mariela Reason for Consult: PAFib w RVR Time Notified: 11:44 Call Completed: Yes - Constitutional Vitals: Temp Pulse Resp BP Pulse Ox 97.8 F 78 15 141/83 93 11/20/17 07:35 11/20/17 07:35 11/20/17 07:35 11/20/17 07:35 11/20/17 07:35 Exam: GENERAL: Alert, no distress, cooperative EYES: PERRLA, EOMI EARS: External ears normal, canals clear OROPHARYNX: Lips, mucosa, and tongue normal. Teeth and gums normal. Oropharynx normal. NECK: No jugulovenous distention, No carotid bruits, Carotid pulse normal contour, Supple LUNGS: Lungs clear to auscultation, Good diaphragmatic excursion CARDIAC: Irregular S1 and S2; no rubs, murmurs, or gallops ABDOMEN: Abdomen soft, non-tender, BS normal, No masses or organomegaly EXTREMITIES: Extremities normal, no deformities, edema, clubbing or skin discoloration. Good capillary refill., No ulcers NEURO: Gait normal. Reflexes normal and symmetric. Sensation grossly intact, Cranial nerves II-XII intact PULSES: 2+ radial, 2+ carotid Rest of the exam is non contributory - Patient Status Disposition: Home, Self-Care Functional capacity at discharge: uses cane/walker - Discharge Instructions Instructions: Atrial Fibrillation (DC) Follow Up With: Manny Ortiz DO [Family Provider] - NONE,PCP [Primary Care Provider] - - Diet and Activity Activity: other Diet: advance to your usual diet
[2017-11-20] MEDS ORDERED: Apixaban 5 MG TABLET PO SCH (09:45)
[2017-11-20] MEDS ORDERED: *HR* Warfarin 2.5 MG TABLET PO ONE (18:00)
--- NOTE | 2017-11-21 13:36 | Electrocardiograph Report ---
[place] [id number] Test Date: 2017-11-19 Pat Name: Melba Vieyra Department: 115 Room: 3A41 Gender: F Hair Specialist: WILTON : 1935 Requested By: Edmar Herbert Order Number: [id number] Reading MD: Sweta Danielle Measurements Intervals [place] Rate: 136 P: ME: 0 QRS: 9 QRSD: 86 T: 52 QT: 225 QTc: 305 Interpretive Statements ATRIAL FIBRILLATION WITH RAPID VENTRICULAR RESPONSE NONSPECIFIC ST & T-WAVE ABNORMALITY ABNORMAL RHYTHM ECG Electronically Signed On 11-21-2017 13:34:15 EDT by Sweta Danielle
--- NOTE | 2017-11-21 13:40 | Electrocardiograph Report ---
[place] [id number] Test Date: 2017-11-18 Pat Name: Melba Vieyra Department: 103 Room: 3A41 Gender: F Smearer: MICHELLE : 1935 Requested By: Bob Tidwell Order Number: [id number] Reading MD: Sweta Danielle Measurements Intervals [place] Rate: 64 P: 66 AL: 150 QRS: 54 QRSD: 86 T: 68 QT: 384 QTc: 393 Interpretive Statements SINUS RHYTHM MINIMAL VOLTAGE CRITERIA FOR LVH, CONSIDER NORMAL VARIANT NONSPECIFIC ST ABNORMALITIES Electronically Signed On 11-21-2017 13:38:20 EDT by Sweta Danielle
== END 2017-11-20 11:29 | disposition home or self-care (01) ==
LOC: 3ANU 11:19 → EMEROO 11:19 → 3ANU 19:58 → SUATTDRO 20:00
PROVIDERS: ADMIT Internal Medicine; ATTEND Internal Medicine